=== PATIENT | male | born 1960 | race Caucasian/White ===

== ENCOUNTER 2017-05-17 02:05 | Emergency (ER) | payer OTHER ==
[~2017-05-17 02:05] MED LIST: ALBUD HHN; COG1 PO; GLU500 PO; LEV500 PO; MOM PO; MP PO; NIC21 TD; PRE20 PO; RIS1 PO; TYLENOL PR; [UNRECOGNIZED DRUG - OTHER] TP
[2017-05-17 05:41] VITALS: BP 160/84
== END 2017-05-17 06:00 | disposition left against medical advice (07) ==
LOC: ED 02:05
DX: Z53.21 Procedure and treatment not carried out due to patient leaving prior to being seen by health care provider (principal)